=== PATIENT | male | born 1935 | race Caucasian/White ===

== ENCOUNTER 2017-09-02 21:39 | Emergency (ER) | payer MEDICARE, OTHER ==
[2017-09-02 22:08] VITALS: TEMP 100.4
[2017-09-02 23:13] VITALS: O2SAT 94
--- NOTE | 2017-09-03 00:04 | ED.PDOC ---
History of Present Illness - General Chief Complaint: Cardiovascular Problem Stated Complaint: feet swelling and hx chf Time Seen by Provider: 09/02/17 23:44 Source: patient Exam Limitations: no limitations - History of Present Illness Initial Comments: Sergei Rogel 81 y/o male brought by em[facility] with bilateral ankle swelling for 5 days stated had been undergoing home PT for CVA but unable to do it since it hurts to put weight on both ankles.Had history of cva in June 2017 stayed in [facility] for 4 weeks then was transferred to [facility] and stayed for 4 weeks.He had Peg insertion during his course of hospitalization after he had chronic aspiration with fluid build up in his lungs Also developed leg swelling and had venous doppler of both extremities but no blood clot noted so he was given albumin transfusion 4 packs which improved the swelling also he was placed on protein diet thru peg tube Timing/Duration: getting worse - 5 days, other Severity: moderate Improving Factors: rest Worsening Factors: movement Associated Symptoms: denies symptoms Allergies/Adverse Reactions: Allergies NO KNOWN ALLERGY Allergy (Verified 09/02/17 22:15) Review of Systems - Review of Systems Constitutional: States: no symptoms reported EENTM: States: no symptoms reported Respiratory: States: no symptoms reported Cardiology: States: no symptoms reported Gastrointestinal/Abdominal: States: no symptoms reported Genitourinary: States: no symptoms reported Musculoskeletal: States: see HPI Skin: States: no symptoms reported Past Medical History (General) - Patient Medical History Hx Stroke: Yes - 2 months ago see hpi Hx Cardiac Disorders: Yes - Pacemaker Hx Congestive Heart Failure: Yes Hx Hypertension: Yes Hx Gastroesophageal Reflux: Yes - G-tube Hx Renal Disease: Yes Hx Cancer: No Hx Hepatitis C: No Surgical History: pacemaker - Vaccination History Hx Tetanus, Diphtheria Vaccination: No Hx Influenza Vaccination: No Hx Pneumococcal Vaccination: No - Social History Hx Tobacco Use: No Hx Chewing Tobacco Use: No Hx Alcohol Use: Yes - occ. Hx Substance Use: No Hx Substance Use Treatment: No Hx Depression: No Hx Physical Abuse: No Hx Emotional Abuse: No Hx Suspected Abuse: No - Activities of Daily Living Patient Lives Alone: No - daughter Grooming Ability: Standby Assistance Eating (Feeding) Ability: Standby Assistance Toileting Ability: Standby Assistance Family Medical History - Family History Grandparents Family History: Unknown Living Status: Hx Family Hypertension: Yes - parents Physical Exam - Physical Exam General Appearance: Alert, Comfortable, No apparent distress Eye Exam: bilateral normal Ears, Nose, Throat: hearing grossly normal, normal ENT inspection, normal pharynx Neck: non-tender, full range of motion, supple Respiratory: chest non-tender, lungs clear, normal breath sounds Cardiovascular/Chest: normal peripheral pulses, regular rate, rhythm Peripheral Pulses: radial,right: 1+, radial,left: 1+, dorsalis pedis,right: 1+, dorsalis pedis,left: 1+ Gastrointestinal/Abdominal: normal bowel sounds, non tender, soft, other - peg tube patent Extremity: no calf tenderness, normal capillary refill, pedal edema - ankle Neurologic: alert, motor weakness - right upper extremities Skin Exam: normal color, warm/dry Progress - Progress Progress: 09/03/17 02:19 Last Vital Signs Temp 100.4 F H 09/02/17 22:01 Pulse 79 09/03/17 02:05 Resp 18 09/03/17 02:05 BP 116/62 09/03/17 02:05 Pulse Ox 94 L 09/02/17 23:06 - Results/Orders Results/Orders: Laboratory Tests 09/02/17 09/02/17 09/03/17 22:27 22:27 00:45 WBC 10.8 RBC 3.82 L Hgb 11.5 L Hct 33.7 L MCV 88.2 MCH 30.1 MCHC 34.0 RDW 18.3 H Plt Count 275 MPV 7.4 Absolute Neuts (auto) 8.60 H Absolute Lymphs (auto) 0.90 L Absolute Monos (auto) 1.30 H Absolute Eos (auto) 0.00 Absolute Basos (auto) 0.00 Neutrophils % 79.7 H Lymphocytes % 8.3 L Monocytes % 11.7 H Eosinophils % 0.1 L Basophils % 0.2 PT 32.4 H* INR 2.900 PTT (SP) 41.6 H D-Dimer, Quantitative 1491 H* Sodium 132 L Potassium 4.0 Chloride 94 L Carbon Dioxide 27 Anion Gap 15.0 BUN 28 H Creatinine 1.38 H BUN/Creatinine Ratio 20.3 H Random Glucose 107 H Serum Osmolality 270.5 L Uric Acid 7.3 H Calcium 9.6 Magnesium 1.8 Creatine Kinase 45 CK-MB (CK-2) 1.1 CK-MB (CK-2) % Not Reportable Troponin I 0.04 B-Natriuretic Peptide 528.0 H* Urine Color Urine Appearance Urine pH Ur Specific [place] Urine Protein Urine Glucose (UA) Urine Ketones Urine Blood Urine Nitrite Urine Bilirubin Urine Urobilinogen Ur Leukocyte Esterase Urine RBC Urine WBC Ur Epithelial Cells Calcium Oxalate Crystal Urine Bacteria 09/03/17 01:11 WBC RBC Hgb Hct MCV MCH MCHC RDW Plt Count MPV Absolute Neuts (auto) Absolute Lymphs (auto) Absolute Monos (auto) Absolute Eos (auto) Absolute Basos (auto) Neutrophils % Lymphocytes % Monocytes % Eosinophils % Basophils % PT INR PTT (SP) D-Dimer, Quantitative Sodium Potassium Chloride Carbon Dioxide Anion Gap BUN Creatinine BUN/Creatinine Ratio Random Glucose Serum Osmolality Uric Acid Calcium Magnesium Creatine Kinase CK-MB (CK-2) CK-MB (CK-2) % Troponin I B-Natriuretic Peptide Urine Color Yellow Urine Appearance Clear Urine pH 5.5 Ur Specific [place] 1.015 Urine Protein 30 Urine Glucose (UA) Negative Urine Ketones Negative Urine Blood Negative Urine Nitrite Negative Urine Bilirubin Negative Urine Urobilinogen 1.0 Ur Leukocyte Esterase Negative Urine RBC 0 Urine WBC 0 Ur Epithelial Cells 0 Calcium Oxalate Crystal 1+ Urine Bacteria Rare - EKG/XRAY/CT EKG: LBBB Comments: heart rate 84 pacemaker;LBBB Departure - Departure Clinical Impression: Swelling of both ankles, Gouty arthropathy Bilateral ankle pain Qualifiers: Chronicity: unspecified Qualified Code(s): M25.571 - Pain in right ankle and joints of right foot Time of Disposition: 02:33 Disposition: Discharge to Home or Self Care Condition: Fair Departure Forms: ED Discharge - Pt. Copy, Patient Portal Self Enrollment Instructions: DI for Gout, Gout, Higher Vitamin C Intake Associated With Lower Risk of Gout Additional Instructions: Keep appointment with Dr. Wagner Padilla in AM 09/03/2017 your primary Md Edouard Hussein
--- NOTE | 2017-09-03 00:32 | RAD ---
EXAM DESCRIPTION: Chest,1 View CLINICAL HISTORY: 81 years Male leg swelling COMPARISON: 08/27/2016 FINDINGS: The cardiomediastinal silhouette appears unremarkable. No consolidating infiltrates or pleural effusions. No pneumothorax. Left-sided transvenous pacemaker with lead tips in the region of the right atrium and right ventricle IMPRESSION: No acute abnormality is identified. Electronically signed by: Cherise Allen 09/03/2017 12:30 AM [employer] TECHNICIAN
[2017-09-03] MEDS ORDERED: DEXAMETHASONE INJ 4 MG/ML VIAL IV ONE (02:29)
[2017-09-03] MEDS ORDERED: COLCHICINE 0.6 MG TAB PO SCH (02:30)
[2017-09-03] MEDS ORDERED: HYDROCOD/APAP 5/325 (ER DISP) #3 TAB PO ONE (02:31)
[2017-09-03 03:28] VITALS: BP 124/58
== END 2017-09-03 03:57 | disposition home or self-care (01) ==
LOC: ER 21:39
DX: M79.89 Other specified soft tissue disorders (principal); M10.9 Gout, unspecified; M25.571 Pain in right ankle and joints of right foot; M25.572 Pain in left ankle and joints of left foot; I44.7 Left bundle-branch block, unspecified; N18.9 Chronic kidney disease, unspecified; I50.9 Heart failure, unspecified; I13.0 Hypertensive heart and chronic kidney disease with heart failure and stage 1 through stage 4 chronic kidney disease, or unspecified chronic kidney disease; K21.9 Gastro-esophageal reflux disease without esophagitis; Z95.0 Presence of cardiac pacemaker; Z86.73 Personal history of transient ischemic attack (TIA), and cerebral infarction without residual deficits
CPT/HCPCS: 36415; 71010; 80048; 81001; 82550; 82553; 83880; 84484; 84550; 85025; 85379; 85610; 85730; 93005; J1100